=== PATIENT | male | born 1945 | race Caucasian/White ===

== ENCOUNTER → 2016-08-08 | Outpatient (CLI) | payer MEDICARE, OTHER ==
--- OUTSIDE RECORDS SUMMARY | 2016-08-08 10:44 | XMS REPORT | Continuity of Care Document ---
Author Author [facility] Organization [facility] Address Unknown Phone Unavailable Allergies Medications Problems Date Dx Coded Attending Type Code Diagnosis Diagnosed By 09/05/2014 Ot 790.93 09/05/2014 Ot V10.46 03/11/2015 MARU TAYLOR MD Ot 790.93 03/11/2015 MARU TAYLOR MD E Ot V10.46 08/11/2015 MARU TAYLOR MD E Ot Z08 08/11/2015 MARU TAYLOR MD E Ot Z85.46 08/16/2015 MARU TAYLOR MD E Ot Z08 08/16/2015 MARU TAYLOR MD E Ot Z85.46 09/01/2015 MARU TAYLOR MD E Ot Z08 09/01/2015 MARU TAYLOR MD E Ot Z85.46 02/12/2016 MARU TAYLOR MD Ot C61 MALIGNANT NEOPLASM OF PROSTATE 03/02/2016 MARU TAYLOR MD Ot C61 MALIGNANT NEOPLASM OF PROSTATE Procedures Results Test Result Range Prostate specific ag [mass/volume] in serum or plasma - 02/09/16 10:15 Prostate specific ag [mass/volume] in serum or plasma 0.88 % 0.00-4.00 Encounters ACCT No. Visit Date/Time Discharge Status Pt. Type Provider Facility Loc./Unit Complaint [id number] 02/16/2015 08:27:00 2014 23:59:59 CLS Outpatient MARU TAYLOR MD [facility] ONC [id number] 02/24/2014 09:59:00 2013 00:01:00 DIS Outpatient [id number] 02/09/2016 09:36:00 ACT Outpatient MARU TAYLOR MD [facility] ONC [id number] 08/10/2015 09:44:00 ACT Outpatient MARU TAYLOR MD [facility] ONC [id number] 08/13/2014 10:59:00 Document Registration
== END ==
LOC: ONC 10:41
PROVIDERS: ATTEND Radiology Radiation Oncology
DX: C61 Malignant neoplasm of prostate (principal)
CPT/HCPCS: 36415; 84153

== ENCOUNTER → 2016-11-22 | Outpatient (CLI) | payer MEDICARE, OTHER | LOC: ONC 15:15 | PROVIDERS: ATTEND Radiology Radiation Oncology | DX: Z08 Encounter for follow-up examination after completed treatment for malignant neoplasm (principal); Z85.46 Personal history of malignant neoplasm of prostate | CPT/HCPCS: 99212 ==

== ENCOUNTER → 2017-01-17 | Outpatient (CLI) | payer MEDICARE, OTHER | END | disposition still patient (30) | LOC: ONC 14:55 | PROVIDERS: ATTEND Radiology Radiation Oncology | DX: C61 Malignant neoplasm of prostate (principal) | CPT/HCPCS: 36415; 84153; 99211 ==